=== PATIENT | female | born 1945 | race Caucasian/White ===

== ENCOUNTER → 2016-08-31 17:12 | Outpatient (CLI) | payer MEDICARE, OTHER | END | disposition home or self-care (01) | LOC: D.MAMMO 13:15 | DX: Z12.31 Encounter for screening mammogram for malignant neoplasm of breast (principal) ==

== ENCOUNTER → 2017-11-30 06:25 | Outpatient (CLI) | payer MEDICARE, OTHER | END | disposition home or self-care (01) | LOC: D.MAMMO 06:25 | DX: Z12.31 Encounter for screening mammogram for malignant neoplasm of breast (principal) ==

== ENCOUNTER → 2018-08-07 12:37 | Outpatient (CLI) | payer MEDICARE, OTHER ==
[2018-08-08 08:21] LABS: IMMUNOGLOBULIN A 160 mg/dL (64-422); IMMUNOGLOBULIN M 132 mg/dL (26-217)
[2018-08-10 14:11] LABS: IMMUNOGLOBULIN E 40 IU/mL (0-100)
[2018-08-10 19:07] LABS: IGG SUBCLASS 1 468 mg/dL (248-810); IGG SUBCLASS 2 159 mg/dL (130-555); IGG SUBCLASS 3 32 mg/dL (15-102); IGG SUBCLASS 4 13 mg/dL (2-96); IMMUNOGLOBULIN G 723 mg/dL (700-1600)
== END | disposition home or self-care (01) ==
LOC: D.RT 12:37
PROVIDERS: Internal Medicine Pulmonary Disease
DX: R06.2 Wheezing (principal); Z87.09 Personal history of other diseases of the respiratory system

== ENCOUNTER 2019-07-07 08:00 | Outpatient (CLI) | payer MEDICARE, OTHER | END 2019-07-07 23:59 | disposition home or self-care (01) | LOC: D.MAMMO 08:00 | PROVIDERS: ATTEND Family Medicine | DX: Z12.31 Encounter for screening mammogram for malignant neoplasm of breast (principal) ==